=== PATIENT | female | born 1990 | race Caucasian/White ===

== ENCOUNTER 2017-03-01 16:10 | Emergency (ER) | payer MEDICAID, OTHER ==
[~2017-03-01] VITALS: Ht 160 cm; Wt 89.0 kg
[~2017-03-01 16:10] MED LIST: PREN1TAB62 PO
[2017-03-01 16:21] VITALS: Ht 160 cm; Wt 89.0 kg
--- NOTE | 2017-03-01 18:19 | ERD ---
ER Documentation Chief Complaint Date/Time DATE: 03/01/17 TIME: 18:[address] HPI Patient is a 26-year-old female who presents to the ED with sore throat, cough and right eye redness and irritation 2 days. She states that both of her children have had similar symptoms at home. Denies shortness of breath or chest pain or difficulty breathing. Denies headache or dizziness, neck pain or neck stiffness. Denies abdominal pain, nausea, vomiting or diarrhea. States that her throat hurts and she has pain when she swallows. States that she has a mild cough. No seizures or rashes. Has not taken any medication besides Tylenol, 1 PM today. No other complaints. ROS All systems reviewed and are negative except as per history of present illness. Medications Home Meds Active Scripts Polymyxin B Sulfate-TMP* (Polymyxin B-TMP Eye Drops*) 10 Ml Drops, 1 DROP RIGHT EYE QID for 7 Days, EA Prov:SHANTANU BAXTER PA-C 03/01/17 Acetaminophen* (Tylophen*) 500 Mg Capsule, 1 CAP PO Q6H Y for PAIN AND OR ELEVATED TEMP, #20 CAP Prov:SHANTANU BAXTER PA-C 03/01/17 Penicillin V Potassium* (Penicillin V K*) 500 Mg Tab, 500 MG PO BID for 10 Days , TAB Prov:SHANTANU BAXTER PA-C 03/01/17 Reported Medications Vit-Iron Fumarate-FA ( Vitamin Tablet) 1 Each Tablet, 1 TAB PO DAILY, TAB 03/14/15 Allergies Allergies: Coded Allergies: No Known Drug Allergies (Verified Allergy, Unknown, 04/29/15) PMhx/Soc History of Surgery: No Anesthesia Reaction: No Hx Neurological Disorder: No Hx Respiratory Disorders: No Hx Cardiac Disorders: No Hx Psychiatric Problems: No Hx Miscellaneous Medical Probl: No Hx Alcohol Use: No Hx Substance Use: No Hx Tobacco Use: No Smoking Status: Never smoker Physical Exam Vitals Vital Signs Date Time Temp Pulse Resp B/P Pulse Ox O2 Delivery O2 Flow Rate FiO2 03/01/17 16:21 102.0 118 18 136/90 99 Physical Exam GENERAL: Well-developed, well-nourished female. Appears in no acute distress. HEAD: Normocephalic, atraumatic. EYES: Pupils are equally reactive bilaterally. EOMs grossly intact. Right eye has mild conjunctival erythema. No pain with EOMs. No proptosis. ENT: Moist mucous membranes. No uvula deviation. No kissing tonsils. Mild exudates. Erythematous tonsils. NECK: Supple. No lymphadenopathy or thyromegaly. No meningismus. negative kernig. negative brudinski. LUNG: Clear to auscultation bilaterally. No rhonchi, wheezing, rales or coarse breath sounds. HEART: Regular rate and rhythm. No murmurs, rubs or gallops. Extremities: Equal pulses bilaterally. No peripheral clubbing, cyanosis or edema. No unilateral leg swelling. NEUROLOGIC: Alert and oriented. Moving all four extremities. 5/5 strength in all extremities. Normal speech. Steady gait. SKIN: Normal color. Warm and dry. No rashes or lesions. Capillary refill < 2 seconds Results 24 hrs Current Medications Medications (Trade) Dose Ordered Sig/Ashley Route PRN Reason Start Time Stop Time Status Last Admin Dose Admin Acetaminophen (Tylenol Tab) 650 mg ONCE ONCE PO 03/01/17 18:30 03/01/17 18:31 DC 03/01/17 18:41 Procedures/MDM ER COURSE: I kept the patient and/or family informed of laboratory and diagnostic imaging results throughout the emergency room course. MEDICATIONS Tylenol. ED visual acuity. Tolerated well with no adverse reaction. MEDICAL DECISION MAKING: This is a 26-year-old female who presents with sore throat, cough, right eye redness and irritation 2 days. Vital signs were reviewed. . Patient is not hypoxic. Patient has a temperature of 102 here in the ED. Patient is not toxic or ill-appearing. Patient likely has pharyngitis of strep etiology. Patient also has conjunctivitis bacterial versus viral etiology. Low suspicion for pneumonia, PE, pneumothorax, ACS, epiglottitis, obstruction, TB, pertussis, meningitis, sepsis. Low suspicion for peritonsillar abscess, strep pharyngitis , mononucleosis, dental abscess. Low suspicion for acute angle closure glaucoma , retinal detachment, arterial occlusion, hemorrhage, fracture, foreign body, ruptured globe, orbital cellulitis. I reexamined patient after administration of medication, temperature is down trending. At this point patient does not need to be admitted and does not show signs of respiratory distress. DISCHARGE: At this time, patient is stable for discharge and outpatient management with no new complaints during the ER course. Patient was sent home with Tylenol, penicillin VK and Polytrim. Patient will be discharged home with instructions to recheck for new or worsening symptoms such as fever, nausea, weakness, LOC and to follow up with primary care in the next 1-2 days. Patient was advised to return to the ER for any new or worsening symptoms. Plan was discussed and patient and/or family understands and agrees. Home instructions were given. Departure Diagnosis: Primary Impression: Sore throat Additional Impression: Conjunctivitis Conjunctivitis type: acute Acute conjunctivitis type: unspecified Laterality: right Qualified Code: H10.31 - Acute conjunctivitis of right eye , unspecified acute conjunctivitis type Condition: Stable SHANTANU BAXTER PA-C March 01, 2017 18:19
[2017-03-01] MEDS ORDERED: PEN500 PO (18:20)
[2017-03-01] MEDS ORDERED: POLY10DR19 RIGHT EYE (18:20)
[2017-03-01] MEDS ORDERED: ACET500C5 PO (18:20)
[2017-03-01] MEDS ORDERED: ACETAMINOPHEN 325 MG TAB PO ONE (18:30)
[2017-03-01 19:42] VITALS: RESP 22; TEMP 98.9
== END 2017-03-01 19:43 | disposition home or self-care (01) ==
LOC: FTE 16:10
DX: J02.9 Acute pharyngitis, unspecified (principal); H10.31 Unspecified acute conjunctivitis, right eye
CPT/HCPCS: Z7502; Z7610; 99284

== ENCOUNTER 2018-12-19 19:57 | Outpatient (CLI) | payer OTHER ==
[~2018-12-19] VITALS: Ht 154.9 cm; Wt 99.5 kg
[~2018-12-19 19:57] MED LIST changes: +ACET500C5 PO; +PENI500T PO; +POLY10DR19 RIGHT EYE
[2018-12-19 22:41] VITALS: Ht 154.9 cm; Wt 99.5 kg
[2018-12-19 22:42] VITALS: BP 124/69; PULSE 83; RESP 18
[2018-12-19] MEDS ORDERED: TERBUTALINE 1 MG/ML INJ SC ONE (23:00)
[2018-12-19] MEDS: LACTATED RINGER'S 1,000 ML IV* SCH (23:49)
[2018-12-20] MEDS: LACTATED RINGER'S 1,000 ML IV* SCH (00:25)
[2018-12-20] MEDS ORDERED: TERBUTALINE 1 MG/ML INJ SC ONE (03:30)
--- NOTE | 2018-12-20 08:33 | TRIAGE ---
OB Triage Datetime Report Generated by CPN: 12/20/2018 08:32 Datetime: 12/20/2018 05:50 Stage of : OB Triage Labor Evaluation Frequency: X1/50 MIN Monitor Mode: External Duration (sec)2399: 50 Quality: Mild Pattern: Normal: <= 5 Contractions in 10 Minutes Resting Tone [place]: Relaxed Heart Rate FHR Baseline Rate: 150 Monitor Mode: External US Variability: Moderate 6-25 bpm Accelerations: 15X15 Decelerations: None Category: Category I Datetime: 12/20/2018 05:00 Stage of : OB Triage Labor Evaluation Frequency: X1 (Annotations: TOCO OFF, NEED UA REFERENCE) Monitor Mode: External Duration (sec)2399: 50 Quality: Mild Pattern: Normal: <= 5 Contractions in 10 Minutes Resting Tone [place]: Relaxed Heart Rate FHR Baseline Rate: 145 Monitor Mode: External US Variability: Moderate 6-25 bpm Accelerations: 15X15 Decelerations: None Category: Category I Datetime: 12/20/2018 04:00 Stage of : OB Triage Labor Evaluation Frequency: 3-8 Monitor Mode: External Duration (sec)2399: 50-80 Quality: Mild Pattern: Normal: <= 5 Contractions in 10 Minutes Resting Tone [place]: Relaxed Heart Rate FHR Baseline Rate: 140 Monitor Mode: External US Variability: Moderate 6-25 bpm Accelerations: 15X15 Decelerations: None Category: Category I Datetime: 12/20/2018 03:00 Stage of : OB Triage Labor Evaluation Frequency: 3-15 Monitor Mode: External Duration (sec)2399: 50-100 Quality: Mild Pattern: Normal: <= 5 Contractions in 10 Minutes Resting Tone [place]: Relaxed Heart Rate FHR Baseline Rate: 140 Monitor Mode: External US Variability: Moderate 6-25 bpm Accelerations: 15X15 Decelerations: None Category: Category I Datetime: 12/20/2018 02:00 Stage of : OB Triage Labor Evaluation Frequency: 5-7 Monitor Mode: External Duration (sec)2399: 50-100 Quality: Mild Pattern: Normal: <= 5 Contractions in 10 Minutes Resting Tone [place]: Relaxed Heart Rate FHR Baseline Rate: 140 Monitor Mode: External US Variability: Moderate 6-25 bpm Accelerations: 15X15 Decelerations: None Category: Category I Datetime: 12/20/2018 01:00 Stage of : OB Triage Labor Evaluation Frequency: 2-8 Monitor Mode: External Duration (sec)2399: 40-80 Quality: Mild Pattern: Normal: <= 5 Contractions in 10 Minutes Resting Tone [place]: Relaxed Heart Rate FHR Baseline Rate: 140 Monitor Mode: External US Variability: Moderate 6-25 bpm Accelerations: 15X15 Decelerations: None Category: Category I Datetime: 12/20/2018 00:00 Stage of : OB Triage Labor Evaluation Frequency: 1-14 Monitor Mode: External Duration (sec)2399: 40-80 Quality: Mild Pattern: Normal: <= 5 Contractions in 10 Minutes Resting Tone [place]: Relaxed Heart Rate FHR Baseline Rate: 150 Monitor Mode: External US Variability: Moderate 6-25 bpm Accelerations: 15X15 Decelerations: None Category: Category I Datetime: 12/19/2018 23:02 Vaginal Exam Dilatation (cms): 1.0 Effacement (%): 50 Station: -2 Exam By: CLARIBEL Vaginal Bleeding: None Cervix, Consistency: Moderate Cervix, Position: Anterior Datetime: 12/19/2018 23:00 Stage of : OB Triage Labor Evaluation Frequency: 2-8 Monitor Mode: External Duration (sec)2399: 40-80 Quality: Mild Pattern: Normal: <= 5 Contractions in 10 Minutes Resting Tone [place]: Relaxed Heart Rate FHR Baseline Rate: 140 Monitor Mode: External US Variability: Moderate 6-25 bpm Accelerations: 15X15 Decelerations: None Category: Category I Datetime: 12/19/2018 21:45 Stage of : OB Triage Temperature Route: Oral Labor Evaluation Frequency: 2-8 Monitor Mode: External Duration (sec)2399: 30-80 Quality: Mild Pattern: Normal: <= 5 Contractions in 10 Minutes Resting Tone [place]: Relaxed Heart Rate FHR Baseline Rate: 140 Monitor Mode: External US Variability: Moderate 6-25 bpm Accelerations: 15X15 Decelerations: None Category: Category I Pain Assessment Pain Scale: 3 Pain Presence: Intermittent Pain Type: Cramping Pain Location: Abdomen Pain Goal: 3 Pain Relief Measures: Comfort Measures Datetime: 12/19/2018 21:42 Time of Arrival: 12/19/2018 19:51 EGA: 33.5 Arrived By: Wheelchair Arrived From: Home Chief Complaint: CRAMPS SINCE 944 Movement: Present Contractions: Irregular Rupture of Membranes: Denies Vaginal Discharge: Denies Recent Sexual Intercouse: Denies Additional Patient Complaints: 2143 DR KHAN CALLED, WANTS LABORIST DR KRAFT TO TAKE OVER Time Provider Notified: 12/19/2018 22:15 Provider Notified: ABENA Initial Plan: EFM, UA, TERBX1, NST, FFN, CERVICAL LENGTH, BPP,, IV 500CC BOLUS, THEN 150 CC /HR Datetime: 12/19/2018 21:20 Assessment Type: Triage Maternal Assessment Level of Consciousness: Fully Conscious DTR's/Clonus: DTRs 2+; No Clonus Headache: Denies Blurred Vision: No Respiratory Effort: Unlabored; Regular Rhythm; Equal Expansion Breath Sounds, Left: Clear and Equal Breath Sounds, Right: Clear and Equal Nausea/Vomiting: Denies RUQ Epigastric Pain: Denies Lower Extremities Edema: None Upper Extremities Edema: None Facial Edema: None Fall Risk Assessment History of Falling: (0) No Secondary Diagnosis: (0) No Ambulatory Aid: (0) Bedrest/Nurse Assist IV Therapy: (0) No Gait: (0) Normal/Bedrest/Immobile Mental Status: (0) Oriented to Own Ability Fall Score: 0 Fall Risk Score Definition: No Risk: No action required
--- NOTE | 2018-12-31 13:27 | PN ---
Triage Information Date/Time Reason for visit: Uterine contractions Weeks of Gestation 33 weeks and 5 days /Para Diabetes: none Hypertention: none Objective Heart Rate: 140's Contractions: 6-10 Minutes Apart Disposition: Discharge Assessment/Plan 28 years old with single intrauterine at 33 weeks and 5 days with a TADEO of 02/01/2019 complaining of uterine contractions. She states good movement. She denies nausea, vomiting, shortness of breath, chest pain, headache, visual changes, vaginal bleeding or LOF. FHR: No sign of metabolic acidosis- Category I. She initially has contraction every 7 minutes. Ultrasound performed with cervical length of 2.7. fibronectin negative biophysical profile 8 out of 8 with JAYA of 13.5. Urinalysis within normal limits. She received IV fluids and 2 dose of terbutaline. No further uterine contraction was noted.Symptoms and sign of labor, preeclampsia, kick count discussed with patient, she voiced understanding. All of her questions answered. Patient was discharged home in stable condition with the appropriate discharge instructions provided. I would like patient to have close follow-up with her primary physician or outpatient clinic in 1-2 days or return to triage for worsening symptoms or any other urgent concerns. GOGO KRAFT Dec 31, 2018 13:27
== END 2018-12-20 06:27 | disposition home or self-care (01) ==
LOC: OBT 19:57 → L-D 19:58 → OBT 12-20 06:27
PROVIDERS: ATTEND Specialist
DX: O62.9 Abnormality of forces of labor, unspecified (principal); Z3A.33 33 weeks gestation of pregnancy
CPT/HCPCS: 36415; 76817; 76818; 81001; 82731; 96360; 96361; J3105; J7120; Z7500; G0463

== ENCOUNTER 2018-12-27 19:14 | Outpatient (CLI) | payer OTHER ==
[~2018-12-27] VITALS: Ht 154.9 cm; Wt 100.7 kg
[~2018-12-27 19:14] MED LIST changes: -PENI500T PO; -POLY10DR19 RIGHT EYE
[2018-12-27 19:21] VITALS: BP 138/70; PULSE 68; RESP 16; Ht 154.9 cm; Wt 100.7 kg
--- NOTE | 2018-12-27 20:10 | HP ---
Date/Time of Note Date/Time of Note DATE: 12/27/18 TIME: 19:55 OB - History Hx of Present Free Text/Dictation 28 YO with IUP at 34.6 weeks with EDC of 02/01/2019. she reports with complaint of uterine contractions. she denies LOF per vagina, vaginal bleeding. she reports good FM. she was in Triage for same complaint about 2 weeks ago, she was discharged after 2 doses of Terb given. her cervix at that time was 1 cm. today her cervix is 1.5 cm and 50% Care: Good Care Ultrasounds: Normal mid trimester US Obstetrical Complications: None Medical Complications: None Past Family/Social History * Past Medical, Surgical, Family and Obstetric Histories reviewed from chart. OB Admission Exam Vital Signs Vital Signs Vital Signs Date Temp Pulse Resp B/P (MAP) Pulse Ox O2 O2 Flow FiO2 Time Delivery Rate 12/27/18 98.2 68 16 138/70 Room Air 19:21 (92) Physical Exam HEENT: WNL Heart: Rhythm Normal Lungs: Clear, Equal Abdomen: WNL Extremities: Normal Reflexes: Normal Cervical Dilatation: other (1.5 cm) Effacement: 50% Membranes: Intact OB Assessment/Plan Reason for admission: IUP - Plan: Other (check UA, Betamethasone, Procardia XL. will repeat exam) MATT KHAN MD Dec 27, 2018 20:10
[2018-12-27] MEDS ORDERED: NIFEdipine (XL) 60 MG TAB PO ONE (21:30)
[2018-12-27] MEDS ORDERED: BETAMET NA PHOS/AC(6 MG/ML) 2 ML INJ SYG IM ONE (21:30)
[2018-12-27] MEDS ORDERED: FER325 PO (21:44)
[2018-12-27] MEDS ORDERED: ASPI-831 PO (21:44)
--- NOTE | 2018-12-28 01:38 | TRIAGE ---
OB Triage Datetime Report Generated by CPN: 12/28/2018 01:37 Datetime: 12/27/2018 21:38 Labor Evaluation Frequency: IRREGULAR Monitor Mode: External Duration (sec)2399: 60-120 Pattern: Normal: <= 5 Contractions in 10 Minutes Heart Rate FHR Baseline Rate: 155 Monitor Mode: External US Variability: Moderate 6-25 bpm Accelerations: 15X15 Decelerations: None Datetime: 12/27/2018 21:36 Vaginal Exam Dilatation (cms): 1.5 Effacement (%): 50 Station: -2 Datetime: 12/27/2018 21:00 Labor Evaluation Frequency: IRREGULAR Monitor Mode: External Duration (sec)2399: 80-120 Pattern: Normal: <= 5 Contractions in 10 Minutes Heart Rate FHR Baseline Rate: 155 Monitor Mode: External US Variability: Moderate 6-25 bpm Accelerations: 15X15 Decelerations: None Datetime: 12/27/2018 20:00 Labor Evaluation Frequency: 4-12 Monitor Mode: External Duration (sec)2399: 120-180 Pattern: Normal: <= 5 Contractions in 10 Minutes Heart Rate FHR Baseline Rate: 155 Monitor Mode: External US Variability: Moderate 6-25 bpm Accelerations: 15X15 Decelerations: None Datetime: 12/27/2018 19:30 Monitor Mode: External US Vaginal Exam Dilatation (cms): 1.5 Effacement (%): 50 Station: -3 Datetime: 12/27/2018 19:21 Stage of : OB Triage Assessment Type: Triage Time of Arrival: 12/27/2018 19:11 EGA: 34.6 Arrived By: Ambulatory Arrived From: Home Chief Complaint: UC'S SINCE 1100 Movement: Present Contractions: Irregular Time Contractions Began: 12/27/2018 11:00 Rupture of Membranes: Denies Vaginal Bleeding: None Vaginal Discharge: Denies Recent Sexual Intercouse: Denies Abdominal Trauma: Not Applicable Patient Complaints: Contractions Time Provider Notified: 12/27/2018 19:35 Provider Notified: YAOVIDIO Initial Plan: CEFM, SVE, PROCARDIA 60MG XL, BETA, PO HYDRATION Maternal Assessment Level of Consciousness: Fully Conscious DTR's/Clonus: DTRs 2+; No Clonus Headache: Denies Blurred Vision: No Respiratory Effort: Unlabored; Regular Rhythm; Equal Expansion Breath Sounds, Left: Clear and Equal Breath Sounds, Right: Clear and Equal Nausea/Vomiting: Denies RUQ Epigastric Pain: Denies Lower Extremities Edema: Bilateral Lower Extremities Degree: 1+ Upper Extremities Edema: None Degree: None Facial Edema: None Temperature Route: Oral Fall Risk Assessment History of Falling: (0) No Secondary Diagnosis: (0) No Ambulatory Aid: (0) Bedrest/Nurse Assist IV Therapy: (0) No Gait: (0) Normal/Bedrest/Immobile Mental Status: (0) Oriented to Own Ability Fall Score: 0 Fall Risk Score Definition: No Risk: No action required Pain Assessment Pain Scale: 2 Pain Presence: Intermittent Pain Type: Contraction Pain Location: Abdomen Pain Relief Measures: Comfort Measures Datetime: 12/19/2018 21:42 EGA: 33.5 Datetime: 12/19/2018 21:20 Fall Score: 0 Fall Risk Score Definition: No Risk: No action required
== END 2018-12-27 21:50 | disposition home or self-care (01) ==
LOC: OBT 19:14 → L-D 19:15 → OBT 21:50
PROVIDERS: ATTEND Specialist
DX: O62.9 Abnormality of forces of labor, unspecified (principal); Z3A.34 34 weeks gestation of pregnancy
CPT/HCPCS: 81001; 96372; J0702; Z7500; Z7610; G0463

== ENCOUNTER 2019-01-01 18:36 | Outpatient (CLI) | payer OTHER ==
[~2019-01-01] VITALS: Ht 154.9 cm; Wt 101.1 kg
[~2019-01-01 18:36] MED LIST changes: +ASPI-831 PO; +FER325 PO
[2019-01-01 18:47] VITALS: BP 136/81
--- NOTE | 2019-01-01 21:01 | PN ---
Triage Information Date/Time January 04, 2019 Reason for visit: Uterine contractions Weeks of Gestation 35w 4d /Para 3/2 Diabetes: none Hypertention: none Additional information C/o irregular, mild contractions since 1100. The pt has been here twice in the last few weeks for similar complaints and received 2 steroid doses. POBHx: 1st baby delivered at 34 weeks after SROM, 2nd baby delivered at term after induction for elevated BP's.. PMHx: none. PSHx: none. NKDA Objective Vital Signs Date Temp Pulse Resp B/P (MAP) Pulse Ox O2 O2 Flow FiO2 Time Delivery Rate 01/01/19 98.3 136/81 18:47 (99) Heart Rate: 150's Heart Rate Comments Accels to 170 BPM. No decels. Contractions: 6-10 Minutes Apart Exam 50%/2/-2 Results/Medications Results 24 hrs Laboratory Tests Test 01/01/19 19:30 Urine Color YELLOW Urine Clarity CLOUDY A Urine pH 5.0 Urine Specific [place]per 1.020 Urine Ketones NEGATIVE Urine Nitrite NEGATIVE Urine Bilirubin NEGATIVE Urine Urobilinogen NEGATIVE Urine Leukocyte Esterase 2+ H Urine Microscopic RBC 1 Urine Microscopic WBC 19 H Urine Squamous Epithelial Cells MODERATE Urine Bacteria FEW A Urine Mucus FEW A Urine Hemoglobin NEGATIVE Urine Glucose NEGATIVE Urine Total Protein NEGATIVE Disposition: Discharge Assessment/Plan A: IUP at 35w 4d. False labor. P: The RN spoke with Dr Subramanian who is familiar with the pt and he said to discharge her w/o any tocolysis. The pt has an appt tomorrow with him. Labor precautions reviewed with the pt. DANETTE BROCK MD Jan 01, 2019 21:01
--- NOTE | 2019-01-01 21:13 | TRIAGE ---
OB Triage Datetime Report Generated by CPN: 01/01/2019 21:13 Datetime: 01/01/2019 21:00 Labor Evaluation Frequency: IRREGULAR Monitor Mode: External Duration (sec)2399: 80-120 Pattern: Normal: <= 5 Contractions in 10 Minutes Heart Rate FHR Baseline Rate: 150 Monitor Mode: External US Variability: Moderate 6-25 bpm Accelerations: 15X15 Decelerations: None Comments: LOSS OF CONTACT Datetime: 01/01/2019 20:34 Maternal Assessment Level of Consciousness: Fully Conscious Respiratory Effort: Unlabored; Regular Rhythm; Equal Expansion Monitor Mode: External Monitor Mode: External US Datetime: 01/01/2019 20:00 Labor Evaluation Frequency: 5.5-9.5 Monitor Mode: External Duration (sec)2399: 60-120 Pattern: Normal: <= 5 Contractions in 10 Minutes Heart Rate FHR Baseline Rate: 150 Monitor Mode: External US Variability: Moderate 6-25 bpm Accelerations: 15X15 Decelerations: None Datetime: 01/01/2019 19:18 Vaginal Exam Dilatation (cms): 2.0 Effacement (%): 50 Station: -2 Datetime: 01/01/2019 18:40 Stage of : OB Triage Assessment Type: Triage Maternal Assessment Level of Consciousness: Fully Conscious DTR's/Clonus: DTRs 2+; No Clonus Headache: Denies Blurred Vision: No Respiratory Effort: Unlabored; Regular Rhythm; Equal Expansion Breath Sounds, Left: Clear and Equal Breath Sounds, Right: Clear and Equal Nausea/Vomiting: Denies RUQ Epigastric Pain: Denies Lower Extremities Edema: None Degree: None Upper Extremities Edema: None Degree: None Facial Edema: None Temperature Route: Oral Fall Risk Assessment History of Falling: (0) No Secondary Diagnosis: (0) No Ambulatory Aid: (0) Bedrest/Nurse Assist IV Therapy: (0) No Gait: (0) Normal/Bedrest/Immobile Mental Status: (0) Oriented to Own Ability Fall Score: 0 Fall Risk Score Definition: No Risk: No action required Monitor Mode: External (Annotations: INITIAL PLACEMENT ) Monitor Mode: External US (Annotations: INITIAL PLACEMNT ) Pain Assessment Pain Scale: 0 Pain Presence: None/Denies Pain Type: N/A Datetime: 01/01/2019 18:39 Time of Arrival: 01/01/2019 17:28 EGA: 35.4 Arrived By: Ambulatory Arrived From: Home Chief Complaint: UC'S Movement: Present Contractions: Irregular Time Contractions Began: 01/01/2019 11:00 Contractions: X4 AN HOUR Rupture of Membranes: Denies Vaginal Bleeding: None Vaginal Discharge: Denies Recent Sexual Intercouse: Denies Abdominal Trauma: Not Applicable Patient Complaints: Contractions Time Provider Notified: 01/01/2019 19:47 Provider Notified: BILL Initial Plan: EFM, CALL MD, UA, SVE Datetime: 12/28/2018 20:42 EGA: 35.0 Datetime: 12/28/2018 20:30 Fall Score: 0 Fall Risk Score Definition: No Risk: No action required Datetime: 12/27/2018 19:21 EGA: 34.6 Fall Score: 0 Fall Risk Score Definition: No Risk: No action required Datetime: 12/19/2018 21:42 EGA: 33.5 Datetime: 12/19/2018 21:20 Fall Score: 0 Fall Risk Score Definition: No Risk: No action required
== END 2019-01-01 21:00 | disposition home or self-care (01) ==
LOC: OBT 18:36 → L-D 18:37 → OBT 21:00
PROVIDERS: ATTEND Specialist
DX: O47.03 False labor before 37 completed weeks of gestation, third trimester (principal); Z3A.35 35 weeks gestation of pregnancy
CPT/HCPCS: 81001

== ENCOUNTER 2019-01-12 12:26 | Inpatient (IN) | payer OTHER ==
[~2019-01-12] VITALS: Ht 154.9 cm; Wt 102.5 kg
[~2019-01-12 12:26] MED LIST changes: -ACET500C5 PO; -ASPI-831 PO
[2019-01-12 12:54] VITALS: Ht 154.9 cm; Wt 102.5 kg
[2019-01-12 12:55] VITALS: BP 137/76; PULSE 82
[2019-01-12] MEDS: LACTATED RINGER'S 1,000 ML IV SCH ×4 (14:58→20:50)
[2019-01-12] MEDS ORDERED: MISOPROSTOL 200 MCG TAB PR PRN (16:00)
[2019-01-12] MEDS ORDERED: LIDOCAINE 1% (MPF) 30 ML INJ INJ PRN (16:00)
[2019-01-12] MEDS ORDERED: AMPICILLIN 2 GM/NS (PMX) 100 ML IV ONE (16:00)
[2019-01-12] MEDS ORDERED: CARBOPROST 250 MCG INJ IM PRN (16:00)
[2019-01-12] MEDS ORDERED: BUTORPHANOL 1 MG INJ IV PRN (16:00)
[2019-01-12] MEDS ORDERED: METHYLERGONOVINE 0.2 MG INJ IM PRN (16:00)
[2019-01-12] MEDS ORDERED: OXYTOCIN 30 UNITS/LR 500 ML IV SCH ×3 (16:00→18:00)
[2019-01-12] MEDS ORDERED: OXYTOCIN 30 UNITS/LR 500 ML IV PRN (16:00)
[2019-01-12] MEDS ORDERED: BUTORPHANOL 2 MG INJ IV PRN (16:00)
[2019-01-12] MEDS ORDERED: MINERAL OIL LIGHT 10 ML VIAL TOP ONE (18:00)
--- NOTE | 2019-01-12 18:27 | PREAC ---
Date/Time of Note Date/Time of Note DATE: 01/12/19 TIME: 18:26 Anesthesia Eval and Record Evaluation Time Pre-Procedure Interview DATE: 01/12/19 TIME: 18:26 Age 28 Sex female NPO: 8 hrs Preoperative diagnosis labor pain Planned procedure epidural Past Medical History Past Medical History: Includes GI: Morbid obesity Surgery & Anesthesia Issues No known issue Meds Anticoagulation: No Beta Justice within 24 hr: No Reason Beta Justice not given: Pt. not on B-Justice Reported Medications Ferrous Sulfate* (Ferrous Sulfate*) 325 Mg Tabec, 325 MG PO DAILY, TAB 12/27/18 Vit-Iron Fumarate-FA ( Vitamin Tablet) 1 Each Tablet, 1 TAB PO DAILY, TAB 03/14/15 Current Medications Lactated Ringer's 1,000 ml @ 250 mls/hr Q4H IV Last administered on 01/12/19at 14:58; Admin Dose 250 MLS/HR; Start 01/12/19 at 14:30 Lactated Ringer's 1,000 ml @ 125 mls/hr Q8H IV Last administered on 01/12/19at 16:37; Admin Dose 125 MLS/HR; Start 01/12/19 at 15:37 Ampicillin 50 ml @ 100 mls/hr Q4H IV ; Start 01/12/19 at 20:00 Butorphanol Tartrate (Stadol) 1 mg Q2H PRN IV .PAIN; Start 01/12/19 at 16:00 Butorphanol Tartrate (Stadol) 2 mg Q2H PRN IV .PAIN; Start 01/12/19 at 16:00 Lidocaine (Xylocaine 1% (Mpf)) 30 ml ONCE PRN INJ .EPISIOTOMY; Start 01/12/19 at 16:00 Oxytocin/Lactated Ringer's 500 ml @ 500 mls/hr ONCE POST IV ; Start 01/12/19 at 16:00 Oxytocin/Lactated Ringer's 500 ml @ 125 mls/hr POST IV ; Start 01/12/19 at 16:00 Oxytocin/Lactated Ringer's 500 ml @ 0 mls/hr ONCE PRN IV .VAGINAL BLEEDING; Start 01/12/19 at 16:00 Methylergonovine Maleate (Methergine) 0.2 mg ONCE PRN IM .VAGINAL BLEEDING; Start 01/12/19 at 16:00 Carboprost Tromethamine (Hemabate) 250 mcg ONCE PRN IM .VAGINAL BLEEDING; Start 01/12/19 at 16:00 Misoprostol (Cytotec) 1,000 mcg ONCE PRN NC .VAGINAL BLEEDING; Start 01/12/19 at 16:00 Oxytocin/Lactated Ringer's 500 ml @ 0 mls/hr FOR AUGMENTATION IV ; Start 01/12/19 at 18:00 Meds reviewed: Yes Allergies Coded Allergies: No Known Allergies (Verified Allergy, Unknown, 01/01/19) No Known Drug Allergies (Verified Allergy, Unknown, 04/29/15) Allergies Reviewed: Yes Labs/Studies Labs Reviewed: Reviewed by anesthesiologist Result Diagram: 01/12/19 1452 01/12/19 1412 Laboratory Tests 01/12/19 14:12 01/12/19 14:52 Blood Bank Test 01/12/19 14:52 Antibody Screen NEGATIVE Blood Type AB POSITIVE Rh Immune Globulin Candidate NO test: Positive Studies: ECG (n/a), CXR (n/a) Pre-procedure Exam Last vitals Vital Signs Date Temp Pulse Resp B/P (MAP) Pulse Ox O2 O2 Flow FiO2 Time Delivery Rate 01/12/19 98.3 82 137/76 12:55 (96) Airway: Adequate mouth opening Mallampati: Mallampati I Teeth: Normal Lung: Normal Heart: Normal ASA Physical Status ASA physical status: 2 Emergency: None Planned Anesthetic Neuraxial: Epidural Pre-operative Attestations Prior to commencing anesthesia and surgery, the patient was re-evaluated, there was verification of: *The patient's identity *The results of appropriate recent lab work and preoperative vital signs *The above evaluation not changing prior to induction *Anesthetic plan, risk benefits, alternative and complications discussed with patient/family; questions answered; patient/family understands, accepts and wishes to proceed. RON KENNY MD Jan 12, 2019 18:27
[2019-01-12] MEDS ORDERED: LACTATED RINGER'S 1,000 ML IV PRN (19:18)
[2019-01-12] MEDS ORDERED: AMPICILLIN 1 GM/NS (PMX) 50 ML IV SCH (20:00)
[2019-01-12] MEDS ORDERED: NALOXONE (0.4 MG/ML) INJ IV PRN (20:30)
[2019-01-12] MEDS ORDERED: ONDANSETRON 4 MG INJ IV PRN (20:30)
[2019-01-12] MEDS ORDERED: FENTAnyl 2MCG/ML-ROPIV 0.2% 100 ML BAG EPI SCH (20:30)
--- NOTE | 2019-01-12 23:38 | PAC ---
Date/Time of Note Date/Time of Note DATE: 01/12/19 TIME: 23:37 Post-Anesthesia Notes Post-Anesthesia Note Last documented vital signs Vital Signs Date Temp Pulse Resp B/P (MAP) Pulse Ox O2 O2 Flow FiO2 Time Delivery Rate 01/12/19 98.3 82 18 137/76 99 22:55 (96) Activity: WNL Respiratory function: WNL Cardiovascular function: WNL Mental status: Baseline Pain reasonably controlled: Yes Hydration appropriate: Yes Nausea/Vomiting absent: No RON KENNY MD Jan 12, 2019 23:38
--- NOTE | 2019-01-13 00:14 | LDN ---
Date/Time of Note Date/Time of Note DATE: 01/13/19 TIME: 00:11 Delivery Summary Weeks of Gestation Term gestation Placenta Delivered: Spontaneously Meconium: none Episiotomy: No Laceration repair: Second-degree laceration repaired with 2-0 Vicryl Anesthesia type: Epidural Estimated blood loss: 200 Sponge & Needle done & correct: Yes All needle counts correct: Yes Any foreign bodies felt in the: No Infant Delivery Information Sex Infant Sex: female Apgars 1 Minute: 8 5 Minute: 9 Suctioning Nose & mouth suctioned at rojelio: Yes Delee suction performed: No Umbilical Cord Umbilical cord with: 3 Vessels Cord presentations: nuchal cord (Tight nuchal cord x1) Cord Blood was obtained: Yes Mother & Baby Disposition Disposition 6 pounds 10 ounces/ 3015 g Mom & Baby to Maternity; Good: Yes Baby to NICU: No Copies To: CC: MATT KHAN MD ; PAWAN THOMSON MD Jan 13, 2019 00:14
[2019-01-13] MEDS ORDERED: OXYTOCIN 30 UNITS/LR 500 ML IV SCH (00:15)
[2019-01-13] MEDS ORDERED: MISOPROSTOL 200 MCG TAB PR PRN (00:30)
[2019-01-13] MEDS ORDERED: BENZOCAINE 20% 56 ML SPRAY TOP PRN (00:30)
[2019-01-13] MEDS ORDERED: SENNA/DOCUSATE NA (8.6MG/50MG) TAB PO PRN (00:30)
[2019-01-13] MEDS ORDERED: ONDANSETRON 4 MG INJ IV PRN (00:30)
[2019-01-13] MEDS ORDERED: LANOLIN HPA 1 PKT TOP PRN (00:30)
[2019-01-13] MEDS ORDERED: METHYLERGONOVINE 0.2 MG INJ IM PRN (00:30)
[2019-01-13] MEDS ORDERED: CARBOPROST 250 MCG INJ IM PRN (00:30)
[2019-01-13] MEDS ORDERED: WITCH HAZEL/GLYCERIN PAD PR PRN (00:30)
[2019-01-13] MEDS ORDERED: MAGNESIUM HYDROXIDE 30ML CUP PO PRN (00:30)
[2019-01-13] MEDS ORDERED: ACETAMINOPHEN 325 MG TAB PO PRN ×2 (00:30)
[2019-01-13] MEDS ORDERED: OXYTOCIN 30 UNITS/LR 500 ML IV PRN (00:30)
[2019-01-13] MEDS ORDERED: DIBUCAINE 1% 30 GM OINT TOP PRN (00:30)
[2019-01-13 04:35] VITALS: BP 134/74; PULSE 81; RESP 18
[2019-01-13] MEDS: IBUPROFEN 600 MG TAB PO PRN ×3 (04:38→23:49)
[2019-01-13 08:00] VITALS: BP 134/74; PULSE 73; RESP 18
[2019-01-13] MEDS: LACTATED RINGER'S 1,000 ML IV* SCH ×2 (08:00→08:15)
[2019-01-13 16:30] VITALS: BP 129/60; RESP 18
--- NOTE | 2019-01-13 17:13 | QN ---
Documentation Comment had B.M no complaints vss afebrile fundus firm lochia min calf neg for tenderness A s/p stable P discharge home in am GUNNAR NORTH MD Jan 13, 2019 17:13
[2019-01-14 04:00] VITALS: BP 120/69; PULSE 72; RESP 19
[2019-01-14] MEDS: IBUPROFEN 600 MG TAB PO PRN (05:43)
[2019-01-14 08:30] VITALS: BP 118/76; PULSE 77; RESP 18
--- NOTE | 2019-01-14 15:24 | DS ---
Date/Time of Note Date/Time of Note DATE: 01/14/19 TIME: 15:24 Discharge Summary Admission/Discharge Info Admit Date/Time Jan 12, 2019 at 15:30 Discharge Date/Time Jan 14, 2019 at 14:00 Discharge Diagnosis Patient Condition: Good Hospital Course uneventful Home Meds Reported Medications Ferrous Sulfate* (Ferrous Sulfate*) 325 Mg Tabec, 325 MG PO DAILY, TAB 12/27/18 Vit-Iron Fumarate-FA ( Vitamin Tablet) 1 Each Tablet, 1 TAB PO DAILY, TAB 03/14/15 Primary Care Provider [facility] Pending Labs Laboratory Tests Test 01/14/19 07:10 White Blood Count 10.0 10^3/ul (4.8-10.8) Red Blood Count 3.85 10^6/ul (4.20-5.40) Hemoglobin 11.3 g/dl (12.0-16.0) Hematocrit 35.2 % (37.0-47.0) Mean Corpuscular Volume 91.4 fl (82.0-101.0) Mean Corpuscular Hemoglobin 29.4 pg (29.0-33.0) Mean Corpuscular Hemoglobin Concent 32.1 g/dl (32.0-37.0) Red Cell Distribution Width 13.3 % (11.5-14.5) Platelet Count 187 10^3/UL (140-415) Mean Platelet Volume 9.2 fl (7.4-10.4) Immature Granulocytes % 0.900 % (0.001-0.429) Neutrophils % 75.9 % (39.0-77.0) Lymphocytes % 16.6 % (15.0-51.0) Monocytes % 4.7 % (0.0-11.0) Eosinophils % 1.6 % (0.0-7.0) Basophils % 0.3 % (0.0-2.0) Nucleated Red Blood Cells % 0.0 /100WBC (0.0-0.0) Immature Granulocytes # 0.090 10^3/ul (0.0-0.031) Neutrophils # 7.6 10^3/ul (1.6-7.5) Lymphocytes # 1.7 10^3/ul (0.8-2.9) Monocytes # 0.5 10^3/ul (0.3-0.9) Eosinophils # 0.2 10^3/ul (0.0-0.5) Basophils # 0.0 10^3/ul (0.0-0.1) Nucleated Red Blood Cells # 0.0 10^3/ul (0.0-0.0) DORINDA MARINELLI M.D. Jan 14, 2019 15:24
--- NOTE | 2019-01-14 15:24 | QN ---
Documentation Comment PPD#2 is stable afebrile tolerates diet No VB +BM +voids VS stable Gen NAD Abd soft NT ND Genitalia No blood at perineum --->discharge DORINDA MARINELLI M.D. Jan 14, 2019 15:24
--- NOTE | 2019-01-15 14:07 | DELSUM ---
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 Babies in Womb: 1 Attempted: No Labor Anesthesia: None LABOR INFORMATION Reason for Induction: Not Applicable Onset of Labor: 01/12/2019 07:00 Complete Dilatation: 01/12/2019 23:09 Cervical Ripening Agents: Other Other Ripening Agents: N/A Oxytocin: Augmentation Group B Beta Strep: Negative Antibiotics # of Doses: 1 Antibiotics Time of Last Dose: 01/12/2019 16:36 Steroids Given: None Reason Steroids Not Administered: Not Applicable MEMBRANES Membranes Rupture Method: Artificial Rupture of Membranes: 01/12/2019 23:25 Length of Rupture (hr): 0.03 Amniotic Fluid Color: Clear Amniotic Fluid Amount: Small Amniotic Fluid Odor: None STAGES OF LABOR Stage 1 hr: 16 Stage 1 min: 9 Stage 2 hr: 0 Stage 2 min: 18 Stage 3 hr: 0 Stage 3 min: 1 Total Time in Labor hr: 16 Total Time in Labor min: 28 VAGINAL DELIVERY Episiotomy: None Laceration Extension: Second Degree Laceration Type: Perineal Other Laceration: N/A Laceration Repair: Yes Initial Vag Sponge Count: 10 Final Vag Sponge Count: 10 Initial Vag Sharps Count: 1 Final Vag Sharps Count: 2 Sponge Count Correct: Yes Sharps Count Correct: Yes Count Comment: 2-[address]-1 added BABY A INFORMATION Infant Delivery Date/Time: 01/12/2019 23:27 Method of Delivery: Vaginal Born in Route : No : N/A Forceps: N/A Vacuum Extraction: N/A Shoulder Dystocia : N/A SHOULDER DYSTOCIA BABY A Infant Delivery Date/Time: 01/12/2019 23:27 PRESENTATION/POSITION BABY A Presentation: Cephalic Cephalic Presentation: Vertex Vertex Position: Left Occipital Anterior Breech Presentation: N/A PLACENTA INFORMATION BABY A Placenta Delivery Time : 01/12/2019 23:28 Placenta Method of Delivery: Expressed Placenta Status: Delivered SCORES BABY A Heart Rate 1 min: >100 bpm Resp Effort 1 min: Good Cry Reflex Irritability 1 min: Cough/Sneeze/Pulls Away Muscle Tone 1 min: Active Motion Color 1 min: Blue/Pale Resuscitation Effort 1 min: Tactile Stimulation SCORE 1 MIN: 8 Heart Rate 5 min: >100 bpm Resp Effort 5 min: Good Cry Reflex Irritability 5 min: Cough/Sneeze/Pulls Away Muscle Tone 5 min: Active Motion Color 5 min: Body Abram, Extremit Blue Resuscitation Effort 5 min: N/A SCORE 5 MIN: 9 INFORMATION BABY A Gestational Age at Delivery: 37.1 Gestational Status: Early Term- 37- 38.6 Weeks Outcome : Liveborn Condition : Stable Infant Sex: Female IDENTIFICATION/MEDS BABY A ID Band Number: [id number] ID Band Location: Right Leg; Left Arm Sensor Applied: Yes Sensor Number: [id number] Sensor Location : Cord Clamp Vitamin K Given : Not Given Erythromycin Given: Not Given WEIGHT/LENGTH BABY A Infant Birthweight (gm): 3015 Weight (lb): 6 Infant Weight (oz): 10 Infant Length (in): 18.50 Infant Length (cm): 46.99 CORD INFORMATION BABY A No. Cord Vessels: 3 Nuchal Cord : Around Neck x1, Loose Cord Blood Taken: Yes Banking/Donate Info: N0 Infant Suction: Mouth; Nose
== END 2019-01-14 14:00 | disposition home or self-care (01) | DRG 807 ==
LOC: OBT 12:26 → L-D 12:26 → OBT 15:30 → L-D 15:30 → PP1 01-13 08:06
PROVIDERS: ADMIT Specialist; ATTEND Specialist
PROC: 10E0XZZ Delivery of Products of Conception, External Approach (ICD-10-PCS; principal; 2019-01-13)
PROC: 0KQM0ZZ Repair Perineum Muscle, Open Approach (ICD-10-PCS; 2019-01-13)
DX: O70.1 Second degree perineal laceration during delivery (principal); Z37.0 Single live birth; O69.81X0 Labor and delivery complicated by cord around neck, without compression, not applicable or unspecified; Z3A.38 38 weeks gestation of pregnancy
CPT/HCPCS: 76815; 76818; 80053; 81001; 84560; 85025; 85610; 85730; 86592; 86850; 86900; 86901; 87086; 87340; 96372; G0463; J0290; J2210; J2590; J3010; J7120